=== PATIENT | female | born 1990 | race Caucasian/White ===

== ENCOUNTER 2017-08-22 14:09 | Emergency (ER) | payer MEDICAID ==
[~2017-08-22] VITALS: Ht 157.5 cm; Wt 94.8 kg
[2017-08-22 14:40] VITALS: Ht 157.5 cm; Wt 94.8 kg
[2017-08-22 17:11] VITALS: BP 116/79
== END 2017-08-22 17:11 | disposition home or self-care (01) ==
LOC: ED 14:09
DX: J06.9 Acute upper respiratory infection, unspecified (principal)
CPT/HCPCS: Q0162

== ENCOUNTER 2019-05-11 17:43 | Emergency (ER) | payer MEDICAID ==
[~2019-05-11] VITALS: Ht 157.5 cm; Wt 97.1 kg
[2019-05-11 18:33] VITALS: Ht 157.5 cm; Wt 97.1 kg
[2019-05-11 19:35] LABS: BASOPHIL % 0.2 % (0-2); PLATELET COUNT 259 x10^3mcL (130-400); RED CELL DISTRIBUTION WIDTH 14.6 % (11.5-14.5)
[2019-05-11 20:07] LABS: UA SPECIFIC GRAVITY >=1.030 (1.005-1.035); microscopic required? YES; urine erythrocyte 3+ (NEGATIVE)
[2019-05-11 20:12] LABS: CALCIUM 8.7 mg/dL (8.5-10.1); CARBON DIOXIDE 23.4 mmol/L (21-32); CHLORIDE SERUM 104 mmol/L (98-107); CREATININE SERUM 0.5 mg/dL (0.6-1.0); GFR1 > 60 mL/min; GLUCOSE SERUM 92 mg/dL (74-106); POTASSIUM SERUM 3.5 mmol/L (3.5-5.1); SODIUM SERUM 139 mmol/L (136-145)
[2019-05-11 20:16] LABS: ALKALINE PHOSPHATASE 81 U/L (46-116); ALT/SGPT 38 U/L (14-59); AST/SGOT 16 U/L (15-37); BILIRUBIN TOTAL 0.2 mg/dL (0.20-1.00); LIPASE 104 IU/L (73-393); TOTAL PROTEIN, SERUM 7.3 g/dL (6.4-8.2)
[2019-05-11 20:17] LABS: ALBUMIN 3.2 g/dL (3.4-5.0)
[2019-05-11 22:16] VITALS: BP 118/75
== END 2019-05-11 22:16 | disposition home or self-care (01) ==
LOC: ED 17:43
PROVIDERS: Emergency Medicine
DX: O23.42 Unspecified infection of urinary tract in pregnancy, second trimester (principal); Z3A.14 14 weeks gestation of pregnancy
CPT/HCPCS: J2405

== ENCOUNTER 2020-05-21 06:07 | Emergency (ER) | payer MEDICAID, SELFPAY ==
[~2020-05-21] VITALS: Ht 157.5 cm; Wt 100.2 kg
[2020-05-21 06:10] VITALS: Ht 157.5 cm; Wt 100.2 kg
[2020-05-21 06:57] VITALS: BP 100/70
== END 2020-05-21 06:57 | disposition home or self-care (01) ==
LOC: ED 06:07
DX: M79.10 Myalgia, unspecified site (principal); R50.9 Fever, unspecified; R05 Cough; Z20.822 Contact with and (suspected) exposure to COVID-19
CPT/HCPCS: U0003